=== PATIENT | male | born 1925 | race Caucasian/White ===

== ENCOUNTER → 2016-10-05 | Outpatient (CLI) | payer OTHER ==
[~2016-10-05] VITALS: Ht 172.7 cm; Wt 84.4 kg
[~2016-10-05] MED LIST: CALCIUM500 MG PO; CAYENNE450 MG PO; FLOMAX0.4 MG PO; GARLIC100 MG PO; MAGNESIUM250 M1 PO; SAW PALMETTO450 MG PO; UNICOMPLEX M TA1 TA1 PO; VITAMIN D1000 UNIT PO; ZINC50 M2 PO
--- NOTE | ~2016-10-05 | HPC ---
[facility] [address] [place] [address] PAIN MANAGEMENT CONSULTATION Name: DARON MUNOZ Tiesha Room #: REG AMY Brodie#: [id number] Admission: 10/05/16 Attend Phys: Fortunato Badillo DO Discharge: Date of : 11/16/[birth year] Report #: [id number] THIS REPORT FOR: //name// CC: Sixto Badillo HISTORY OF PRESENT ILLNESS: The patient is a very pleasant 89-year-old gentleman. He had prior been seen in the pain clinic back in 2005 for lumbar radicular symptoms, somewhat lost to follow up. He returns to the pain clinic today for exacerbation of pain, low back, right foot and leg. He has had 2 shots in his right foot by his top cleaner for some plantar fasciitis, that seems to be improving, but he has ongoing low back pain, described as stabbing in the posterolateral aspect of this buttock, leg and foot. He has some subjective paresthesia, but no weakness, no bowel or bladder continence changes. He states the pain had been episodic but it is getting to the point that it is fairly consistent whenever he bears weight. Walking or standing exacerbates the pain significantly. He rates the pain anywhere from 5-8 on a 0-10 visual analog scale, describes intermittent burning, cramping pain. He gets some relief when he is sitting. REVIEW OF SYSTEMS: Complete review of systems attached to chart and gone over with the patient. He is . Does not smoke, drink alcohol to excess. Reasonably healthy gentleman, with history benign prostatic hypertrophy for which he takes tamsulosin, hypertension by history, but on no medications for same. 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 He has been retired for 25 years. Pain impact score is fairly consistent averaging 5 for all indices queried. PHYSICAL EXAMINATION: GENERAL: Reveals a 5 feet 8 inches, 180-pound gentleman. VITAL SIGNS: Stable as noted in the EMR. NEUROLOGIC: Cranial nerves 2-12 are grossly intact. HEENT: Pupils equal and react to light and accommodation. Extraocular muscles are intact. NECK: Thyroid unremarkable. MUSCULOSKELETAL: Slight decreased cervical range of motion, does have some thoracic kyphosis upper extremity strength is generally preserved. HEART: Regular rhythmical without murmur. LUNGS: Clear to auscultation. EXTREMITIES: Arises from chair using armrest, little tender over the bilateral SI joints. Right hip flexion strength is significantly limited. Straight leg raise is equivocal bilaterally, a little more tender on the right than the left. Patellar and Achilles reflexes are preserved. Jaime test is negative. Skin integument is intact. 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 [address] [address] PAIN MANAGEMENT CONSULTATION Name: DARON MUNOZ Room #: REG CL Brodie#: [id number] Admission: 10/05/16 Attend Phys: Fortunato Badillo DO Discharge: Date of : 11/16/[birth year] Report #: [id number] ASSESSMENT: Symptomatic lumbar radiculopathy secondary to spinal stenosis. RECOMMENDATIONS: Lumbar epidural injection under fluoroscopy today at L4-L5. Follow up in 3 weeks for reevaluation. Thank you for allowing me to participate in the patient's care. PROCEDURE NOTE: Lumbar epidural injection under fluoroscopy. PROCEDURE NOTE: After both written and informed consent to include risk of spinal cord damage, increased pain, weakness and dural puncture, the patient was taken to the fluoroscopy suite, placed in the prone position. After sterile prep and drape, a skin wheal with lidocaine was raised. A 22-gauge epidural Tuohy needle was inserted in the midline at L4-L5 with good loss to resistance. Negative aspiration for cerebrospinal fluid or blood was noted. Then 1 mL of Omnipaque under biplanar fluoroscopy showed good spread within the epidural space. This was followed with 80 mg of triamcinolone plus 1 mL of 1.5% preservative-free Xylocaine, 0.5 mL Xylocaine was then injected to flush the needle; it was removed. The patient was monitored for an appropriate period of time and discharged in good and stable condition. By: 0711 1222 Fortunato Badillo DO /nt
[2016-10-05 14:20] VITALS: BP 150/77
== END ==
LOC: PAIN 07:14
DX: M54.16 Radiculopathy, lumbar region (principal); M48.06 Spinal stenosis, lumbar region; I10 Essential (primary) hypertension

== ENCOUNTER → 2016-10-17 | Outpatient (CLI) | payer OTHER | LOC: ULTRA 13:03 | DX: R01.1 Cardiac murmur, unspecified (principal) ==

== ENCOUNTER 2016-10-21 09:10 | Inpatient (IN) | payer OTHER ==
[~2016-10-21] VITALS: Ht 172.7 cm; Wt 78.5 kg
--- NOTE | ~2016-10-21 | H ---
[facility] [place] [address] HISTORY AND PHYSICAL Name: DARON MUNOZ Room #: 435-P ADM IN M.R.#: [id number] Admission: 10/21/16 Attend Phys: Sixto Rodriguez MD Discharge: Date of : 11/16/27 Report #: [id number] THIS REPORT FOR: //name// CC: Sixto Rodriguez DATE OF SERVICE: 10/21/2016 CHIEF COMPLAINT: Dizziness. HISTORY OF PRESENT ILLNESS: The patient is an 89-year-old male who has had an intermittent dizziness for several months that has gotten progressively worse. He had an episode again today when he sat up from his chair, became very dizzy and fell into the wall. He states that happened when he gets up too quick and he also gets nausea with this. He denied any chest pain with it. He denies any focal symptoms otherwise. He does have BPH, has been on Flomax recently but that has been discontinued as well and the symptoms have continued. PAST MEDICAL HISTORY: Significant for: 1. BPH. 2. Hypertension. MEDICATIONS: He is currently on only vitamins, garlic, , calcium with vitamin D, magnesium, saw palmetto. No prescription meds. ALLERGIES: No known drug allergies. SOCIAL HISTORY: Nonsmoker, nondrinker, no recreational drugs. REVIEW OF SYSTEMS: CONSTITUTIONAL: No fever or chills. HEENT: No headaches or visual changes. He does have dizziness. CHEST: No chest pains, tightness in chest, shortness of breath, cough or sputum production. GASTROINTESTINAL: He does have episode nausea. No vomiting or diarrhea. GENITOURINARY: No burning or frequency. EXTREMITIES: No new joint pains or swelling. SKIN: No rashes or wounds. NEUROLOGIC: No numbness or weakness. No confusion or disorientation. PHYSICAL EXAMINATION: VITAL SIGNS: In the ER, blood pressure was 179/87, pulse was 84, respiratory rate 16, he is afebrile, O2 sats 99% on room air. GENERAL: He is awake, alert, in no acute distress. He is lying in his bed. He feels fine. HEENT: His mucous membranes are moist. NECK: Supple without adenopathy, thyromegaly or bruits. [facility] [address] [place] [address] HISTORY AND PHYSICAL Name: DARON MUNOZ Room #: 435-P [facility] IN ..#: [id number] Admission: 10/21/16 Attend Phys: Sixto Rodriguez MD Discharge: Date of : 11/16/[birth year] Report #: [id number] CHEST: Clear to auscultation. CARDIOVASCULAR: Regular rhythm without murmur. ABDOMEN: Soft and no masses. Bowel sounds are active. EXTREMITIES: Show no edema. NEUROLOGIC: Alert and oriented x 3. Cranial nerves 2-12 are intact. Gross motor and sensory are intact. LABORATORY DATA: Sodium 141, potassium 4.2, chloride 105, bicarbonate 29, BUN 22, creatinine 1.4, glucose is 116, calcium is 9.6. WBC is 11.3, hemoglobin 16.2, hematocrit 48.1, platelet count 238, 78 segs, 12 lymphs, 9 monos. The patient did have orthostatic changes of almost 20 points in the ER. He went from 176-198 to 159/111 sitting and then standing 178/95 and his pulse changed by 12 points up. ASSESSMENT: 1. Orthostatic hypertension with hypotension. 2. Dizziness, most likely blood pressure changes. 3. Acute kidney injury with dehydration. PLAN: We are going to admit, start on IV fluids, monitor his electrolytes. At this time I do not want to add any pressure elevating meds for his orthostasis. We may consider midodrine if his pressures drop. We will get PT and OT as well for his weakness. He has got a CT. He is not able to get an MRI in light of his monitors he is wearing for arrhythmias. We will keep on telemetry for arrhythmias here, although I suspect this is blood pressure variation problem. We will monitor otherwise closely. By: 16 Sixto Rodriguez MD /nt
[2016-10-21 09:11] VITALS: BP 179/87
[2016-10-21 09:30] LABS: ABSOLUTE NEUTROPHILS 8.9 thou/uL (1.4-8.2); BASOPHILS 0.5 % (0.0-2.0); EOSINOPHILS 0.7 % (0.0-3.0); HEMATOCRIT 48.1 % (42.0-52.0); HEMOGLOBIN 16.2 gm/dL (14.0-18.0); LYMPHOCYTES 12.6 % (24.0-44.0); MCH 31.4 pg (26.0-34.0); MCHC 33.7 g/dL (28.0-37.0); MCV 93.1 fL (80.0-100.0); MONOCYTES 7.7 % (1.0-8.0); PLATELET COUNT 238 thou/uL (150-400); POLYS 78.5 % (36.0-66.0); RBC 5.17 mil/uL (4.50-6.00); RDW 13.3 % (10.5-14.5); WBC 11.3 thou/uL (4.0-11.0)
[2016-10-21 09:31] LABS: MANUAL DIFF NO
[2016-10-21 09:35] LABS: CALCIUM 9.6 mg/dL (8.5-10.1); CREATININE 1.4 mg/dL (0.7-1.3); POTASSIUM 4.2 mmol/L (3.5-5.1)
[2016-10-21] MEDS ORDERED: ZOFRAN ODT4 MG PO (11:59)
[2016-10-21 12:50] VITALS: BP 200/68
[2016-10-21 13:00] VITALS: BP 137/76
[2016-10-21 16:00] VITALS: BP 156/74
[2016-10-21 19:12] VITALS: BP 153/71
[2016-10-21 23:55] VITALS: BP 177/77
[2016-10-22 03:20] VITALS: BP 159/76
[2016-10-22 03:36] LABS: CALCIUM 8.8 mg/dL (8.5-10.1); CREATININE 1.2 mg/dL (0.7-1.3)
[2016-10-22 08:03] VITALS: BP 148/111
[2016-10-22 16:45] VITALS: BP 170/83
[2016-10-22 16:46] VITALS: BP 168/83
[2016-10-22 19:35] VITALS: BP 165/73
[2016-10-23] VITALS (7 sets, daily range): BP systolic 133–179; BP diastolic 64–88
[2016-10-23 08:12] LABS: CALCIUM 8.9 mg/dL (8.5-10.1); CREATININE 1.1 mg/dL (0.7-1.3); POTASSIUM 4.2 mmol/L (3.5-5.1)
[2016-10-23] MEDS ORDERED: MIDODRINE HCL 55 M1 PO (12:55)
[2016-10-24 03:47] VITALS: BP 133/79
[2016-10-24 08:00] VITALS: BP 144/84
== END 2016-10-24 17:23 | disposition home health service (06) | DRG 312 ==
LOC: ER 09:10 → EROBS 12:30 → 4S 12:30
PROVIDERS: Emergency Medicine; Family Medicine
DX: I95.1 Orthostatic hypotension (principal); N17.9 Acute kidney failure, unspecified; N40.0 Benign prostatic hyperplasia without lower urinary tract symptoms; I10 Essential (primary) hypertension; E86.0 Dehydration
CPT/HCPCS: 10100

== ENCOUNTER 2017-01-24 11:15 | Inpatient (IN) | payer OTHER ==
[~2017-01-24] VITALS: Ht 172.7 cm; Wt 81.2 kg
--- NOTE | ~2017-01-24 | EKG ---
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[id number] Requested By: Lupe Yoo Order Number: [id number] MD: Moreno Joel Measurements Intervals [place] Rate: 70 P: 38 [place]: 226 QRS: 1 QRSD: 98 T: 42 QT: 411 QTc: 444 Interpretive Statements Sinus rhythm Prolonged [place] interval Minimal ST depression, anterolateral leads Compared to ECG 10/13/2016 15:00:27 ST (T wave) deviation now present Electronically Signed On 01-25-2017 17:23:48 CDT by Moreno Joel [email or web address] <ELECTRONICALLY SIGNED> By: Moreno Joel MD, [facility] 01/25/17 1723 1117 1117 Moreno Joel MD, [facility] /EPI
--- NOTE | ~2017-01-24 | 2DMMODE ---
[facility] [address] [place] [address] 2 D/M-MODE ECHOCARDIOGRAM Name: DARON MUNOZ Room #: 445-P [facility] IN ..#: [id number] Admission: 01/24/17 Attend Phys: Sixto Rodriguez, Discharge: Date of : 11/16/27 Date of Service: 01/25/17 1533 Report #: [id number] THIS REPORT FOR: //name// APPROVED REPORT Study performed: 01/25/2017 14:24:00 EXAM: Comprehensive 2D, Doppler, and color-flow Echocardiogram Patient Location: Echo lab Room #: [facility] Status: routine Other Information Study Quality: Good/low parasternal window Indications Dizziness and Vertigo 2D Dimensions RVDd: 32.20 mm LVEF(%): 53.56 (>50%) IVSd: 10.72 (7-11mm) LVOT Diam: 22.30 (18-24mm) LVDd: 41.68 mm PWd: 10.52 (7-11mm) LVDs: 30.29 (25-40mm) Aortic Root: 36.10 mm Oscar's LVEF: 53.56 % Volumes Left Atrial Volume (Systole) Single Plane 4CH: 59.25 mL Single Plane 2CH: 78.66 mL LA ESV Index: 37.00 mL/m2 Aortic Valve AoV Peak Declan.: 1.19 m/s AO Peak Gr.: 5.62 mmHg LVOT Max P.84 mmHg LVOT Max V: 0.68 m/s LUISA Vmax: 2.24 cm2 Mitral Valve E/A Ratio: 0.8 MV Decel. Time: 228.22 ms MV E Max Declan.: 0.68 m/s MV A Declan.: 0.88 m/s MV PHT: 66.18 ms IVRT: 78.[address] [facility] [place] [address] 2 D/M-MODE ECHOCARDIOGRAM Name: DARON MUNOZ Room #: 445-P [facility] IN ..#: [id number] Admission: 01/24/17 Attend Phys: Sixto Rodriguez, Discharge: Date of : 11/16/[birth year] Date of Service: 01/25/17 1533 Report #: [id number] Pulmonary Valve PV Peak Declan.: 0.65 m/s PV Peak Gr.: 1.69 mmHg Pulmonary Vein P Vein S: 0.47 m/s P Vein A: 0.40 m/s P Vein D: 0.32 m/s P Vein A Dur.: 133.8 msec P Vein S/D Ratio: 1.47 Tricuspid Valve TR Peak Declan.: 2.64 m/s RAP Estimate: 5.00 mmHg TR Peak Gr.: 27.90 mmHg PA Pressure: 33.00 mmHg Left Ventricle The left ventricle is normal size. There is normal LV segmental wall motion. Mild basal septal hypertrophy is present. Left ventricular systolic function is normal. LVEF is 55%. Grade I diastolic dysfunction Right Ventricle The right ventricle is normal size. The right ventricular systolic function is normal. Atria Left atrium is mildly dilated. Right atrium is at the upper limits of normal. Aortic Valve The Aortic valve is moderately sclerotic. Mild aortic regurgitation. There is no aortic valvular stenosis. Mitral Valve The mitral valve is structurally normal Trace to mild mitral regurgitation. Tricuspid Valve The tricuspid valve is normal in structure. There is trace to mild tricuspid regurgitation. There is mild pulmonary hypertension with an estimated PAP of 28mmHg plus the right atrial pressure. Pulmonic Valve Pulmonic valve is not well visualized. Trace pulmonic regurgitation. [employer] [address] [address] 2 D/M-MODE ECHOCARDIOGRAM Name: DARON MUNOZ Room #: 445-P [facility] IN [facility]#: [id number] Admission: 01/24/17 Attend Phys: Sixto Rodriguez, Discharge: Date of : 11/16/27 Date of Service: 01/25/17 1533 Report #: [id number] The aortic root is normal in size. Ascending aorta is not well visualized. The inferior vena cava is not well visualized. Pericardium There is no pericardial effusion. <Conclusion> Left ventricular systolic function is normal. There is normal LV segmental wall motion. LVEF is 55%. Grade I diastolic dysfunction The aortic valve is moderately sclerotic. Mild aortic regurgitation, no stenosis. The mitral valve is structurally normal, mild mitral regurgitation. There is no pericardial effusion. <ELECTRONICALLY SIGNED> By: Moreno Joel MD, [facility] 01/25/17 1533 1533 1533 Moreno Joel MD, FACC /INF
[~2017-01-24 11:15] MED LIST changes: +MIDODRINE HCL 55 M1 PO; +ZOFRAN ODT4 MG PO
[2017-01-24 11:18] VITALS: BP 203/90
[2017-01-24 11:40] LABS: HEMATOCRIT 45.7 % (42.0-52.0); HEMOGLOBIN 15.3 gm/dL (14.0-18.0); MCHC 33.4 g/dL (28.0-37.0); MCV 92.9 fL (80.0-100.0); PLATELET COUNT 192 thou/uL (150-400); RBC 4.92 mil/uL (4.50-6.00); RDW 13.6 % (10.5-14.5); WBC 9.7 thou/uL (4.0-11.0)
[2017-01-24 11:41] LABS: MANUAL DIFF YES
[2017-01-24 11:56] LABS: ANION GAP 7 mmol/L (7-16); BUN 14 mg/dL (7-18); CALCIUM 9.7 mg/dL (8.5-10.1); CHLORIDE 105 mmol/L (98-107); CO2 29 mmol/L (21-32); CREATININE 1.2 mg/dL (0.7-1.3); GLUCOSE 127 mg/dL (74-106); POTASSIUM 3.7 mmol/L (3.5-5.1); SODIUM 141 mmol/L (136-145)
[2017-01-24 12:03] LABS: ALBUMIN 3.8 g/dL (3.4-5.0); ALKALINE PHOSPHATASE 67 U/L (46-116); SGOT 22 U/L (15-37); SGPT 30 U/L (30-65); TOTAL BILIRUBIN 0.5 mg/dL (<0.1-1.0); TROPONIN-I < 0.04 ng/mL (<0.04-0.07)
[2017-01-24 12:05] LABS: ABSOLUTE NEUTROPHILS 8.1 thou/uL (1.4-8.2); TOTAL CELL COUNT 100
[2017-01-24 12:06] LABS: ANISOCYTOSIS SLIGHT
[2017-01-24 12:21] LABS: URINE BILIRUBIN NEGATIVE (Negative); URINE BLOOD NEGATIVE (Negative); URINE COLOR YELLOW; URINE GLUCOSE-RANDOM* NEGATIVE (Negative); URINE KETONES NEGATIVE (Negative); URINE NITRITE NEGATIVE (Negative); URINE PROTEIN (DIPSTICK) NEGATIVE (Negative); URINE UROBILINOGEN 0.2 E.U./dl (0.2-1.0)
[2017-01-24] MEDS ORDERED: FLORINEF ACETA0.1 MG PO (12:34)
[2017-01-24 15:30] VITALS: BP 187/79
[2017-01-24 21:10] VITALS: BP 143/77
[2017-01-25 00:10] VITALS: BP 160/77
[2017-01-25 03:47] VITALS: BP 149/86
[2017-01-25 07:29] VITALS: BP 167/81
[2017-01-25 16:23] VITALS: BP 129/78
[2017-01-25 20:27] VITALS: BP 168/78
[2017-01-26] VITALS (9 sets, daily range): BP systolic 131–172; BP diastolic 62–90
[2017-01-26 01:07] LABS: FREE T4 0.97 ng/dL (0.82-1.77)
[2017-01-26 04:02] LABS: CHOLESTEROL 162 mg/dL (<200); HDL CHOLESTEROL 41 mg/dL (>40); LDL CHOLESTEROL 111 mg/dL (<100); TRIGLYCERIDE 51 mg/dL (<150); VLDL 10 mg/dL (<40)
[2017-01-26 04:04] LABS: SERUM ASSESSMENT Clear
[2017-01-26 05:07] LABS: GLYCOHEMOGLOBIN (HGB A1C) 5.3 % (4.8-5.6)
[2017-01-26] MEDS ORDERED: METOPROLOL SUCC25 M1 PO (07:10)
[2017-01-27 04:32] VITALS: BP 150/67
[2017-01-27 08:00] VITALS: BP 162/77
[2017-01-27] MEDS ORDERED: TOPROL XL25 MG PO (08:47)
[2017-01-29 23:09] LABS: ALPHA TOCOPHEROL 12.2 mg/L (5.3-17.5)
== END 2017-01-27 16:04 | disposition home health service (06) | DRG 312 ==
LOC: ER 11:15 → 4S 13:15 → EROBS 13:15 → 4S 14:59
PROVIDERS: Physician Assistant; Psychiatry & Neurology Neurology
DX: I95.1 Orthostatic hypotension (principal); N17.9 Acute kidney failure, unspecified; N40.0 Benign prostatic hyperplasia without lower urinary tract symptoms; R41.81 Age-related cognitive decline; E86.0 Dehydration; I10 Essential (primary) hypertension; Z98.42 Cataract extraction status, left eye; Z98.41 Cataract extraction status, right eye; Z82.49 Family history of ischemic heart disease and other diseases of the circulatory system; Z79.899 Other long term (current) drug therapy
CPT/HCPCS: 10100

== ENCOUNTER 2017-09-11 09:24 | Emergency (ER) | payer OTHER ==
[~2017-09-11] VITALS: Ht 175.3 cm; Wt 79.4 kg
[~2017-09-11 09:24] MED LIST changes: +FLORINEF ACETA0.1 MG PO; +METOPROLOL SUCC25 M1 PO; +TOPROL XL25 MG PO
[2017-09-11 11:05] VITALS: BP 134/71
== END 2017-09-11 11:05 | disposition home or self-care (01) ==
LOC: ER 09:24
DX: S83.92XA Sprain of unspecified site of left knee, initial encounter (principal); I10 Essential (primary) hypertension; F10.99 Alcohol use, unspecified with unspecified alcohol-induced disorder; X58.XXXA Exposure to other specified factors, initial encounter; Y99.8 Other external cause status; Y93.89 Activity, other specified; Y92.89 Other specified places as the place of occurrence of the external cause